=== PATIENT | female | born 1980 | race Caucasian/White ===

== ENCOUNTER 2017-08-07 12:57 | Emergency (ER) | payer OTHER ==
[~2017-08-07] VITALS: Ht 162.6 cm; Wt 66.7 kg
[2017-08-07 13:51] LABS: BASOPHIL% 0.2 % (0-2.5); EOSINOPHIL# 0.2 X10e3 (0-0.7); EOSINOPHIL% 1.7 % (0.0-7.0); HEMATOCRIT 44.8 % (35.0-45.0); HEMOGLOBIN 14.7 gm/dL (12.0-16.0); LYMPHOCYTE# 2.2 X10e3 (1.0-3.5); LYMPHOCYTE% 21.6 % (17.0-45.0); MEAN CELL VOLUME 84.3 FL (83-96); MEAN CORPUSCULAR HEMOGLOBIN 27.6 PG (28-34); MEAN CORPUSCULAR HGB CONC 32.7 g/dL (30-36); MEAN PLATELET VOLUME 8.3 FL (6.5-11.5); MONOCYTE# 0.5 X10e3 (0-1.0); MONOCYTE% 4.6 % (3.0-12.0); NEUTROPHIL# 7.5 X10e3 (1.5-7.1); NEUTROPHIL% 71.9 % (40-75); PLATELET COUNT 344 X10e3 (140-420); RED BLOOD COUNT 5.32 X10e (3.90-5.30); RED CELL DISTRIBUTION WIDTH 13.5 % (11.0-15.5); WHITE BLOOD COUNT 10.4 X10e3 (4.0-10.5)
[2017-08-07 13:54] LABS: DIFF IND NO
[2017-08-07 14:10] LABS: BILIRUBIN, DIRECT 0.1 mg/dL (0.0-0.2); BILIRUBIN,INDIRECT 0.6 mg/dL (0.0-0.9); BILIRUBIN,TOTAL 0.7 mg/dL (0.2-2.0); BUN/CREATININE RATIO 16.25; CALCIUM SERUM 8.8 mg/dL (8.4-10.2); CREATININE SERUM 0.8 mg/dL (0.6-1.4); GLOM FILT RATE Estimated 93.6 mL/min (>60); POTASSIUM 4.1 mmol/L (3.5-5.1); PROTEIN TOTAL SERUM 7.3 g/dL (6.0-8.3)
[2017-08-07 14:44] LABS: URINE SOURCE CLEAN CATCH
[2017-08-07 15:01] LABS: URINE APPEARANCE CLOUDY; URINE BLOOD 1+ (NEG); URINE COLOR YELLOW; URINE GLUCOSE NORM (NORM); URINE KETONE NEG (NEG); URINE LEUKOCYTE ESTERASE 2+ (NEG); URINE NITRATE NEG (NEG); URINE PROTEIN 1+ (NEG); URINE SPECIFIC GRAVITY 1.025 (1.003-1.035); URINE UROBILINOGEN NORM (NORM)
[2017-08-07 15:06] LABS: URINE BILIRUBIN NEG (NEG)
[2017-08-07 15:11] LABS: URBCS1 AUWI 0-2 /[HPF] (0-2); URINE SQUAMOUS EPITHELIAL CELL MODERATE /[HPF]
== END 2017-08-07 16:04 | disposition home or self-care (01) ==
LOC: CED 12:57
PROVIDERS: Emergency Medicine
DX: R11.10 Vomiting, unspecified (principal); R19.7 Diarrhea, unspecified; F17.200 Nicotine dependence, unspecified, uncomplicated
CPT/HCPCS: 36415; 80048; 80076; 81003; 82150; 83690; 84703; 85025; 96361; 96374; 99284; J2550